=== PATIENT | female | born 1945 | race Caucasian/White ===

== ENCOUNTER 2016-11-21 09:47 | Emergency (ER) | payer OTHER ==
[~2016-11-21] VITALS: Ht 160 cm; Wt 59.9 kg
--- NOTE | ~2016-11-21 | EKG ---
[place] [id number] [email or web address] [employer] [address] ELECTROCARDIOGRAM REPORT Name: OMARWILL M Room #: [id number] Admission: 11/21/16 Attend Phys: Discharge: Date of : 43 Report #: [id number] THIS REPORT FOR: //name// [facility] ED Test Date: 2016-11-21 Test Time: 10:10:28 Pat Name: WILL NELSON Department: Room: Gender: F Senior Database Programmer: Anila HARMON : 1945 Requested By: Cornelia Allen Order Number: [id number] MD: Daniel Castelan Measurements Intervals [place] Rate: 68 P: 65 [place]: 158 QRS: 23 QRSD: 72 T: 42 QT: 388 QTc: 413 Interpretive Statements Sinus rhythm Probable left atrial enlargement No previous ECG available for comparison Electronically Signed On 11-21-2016 11:22:04 [employer] [place] [employer] [place] [employer] by Daniel Castelan [email or web address] <ELECTRONICALLY SIGNED> By: Daniel Castelan MD 11/21/16 1122 1010 1010 Daniel Castelan MD /MIRANDA
[~2016-11-21 09:47] MED LIST: AMITRIPTYLINE H10 M1 PO; ZEGERID 20 MG1 EACH PO
[2016-11-21 10:14] LABS: HEMOGLOBIN 13.7 gm/dL (12.0-15.0); MCH 31.8 pg (26.0-34.0); MCHC 34.2 % (28.0-37.0); MCV 92.9 fL (80.0-100.0); RBC 4.31 mil/uL (4.20-5.00); RDW 13.2 % (10.5-14.5); WBC 5.2 thou/uL (4.0-11.0)
[2016-11-21] MEDS ORDERED: ALENDRONATE SOD70 MG PO (10:15)
[2016-11-21 10:22] LABS: ANION GAP 10 mmol/L (7-16); BUN 20 mg/dL (7-18); CALCIUM 8.8 mg/dL (8.5-10.1); CHLORIDE 104 mmol/L (98-107); CO2 25 mmol/L (21-32); CREATININE 0.9 mg/dL (0.6-1.3); GLUCOSE 100 mg/dL (70-99); SODIUM 139 mmol/L (136-145)
[2016-11-21 10:32] LABS: ALBUMIN 3.9 g/dL (3.4-5.0); ALKALINE PHOSPHATASE 63 U/L (46-116); SGOT 15 U/L (15-37); SGPT 21 U/L (30-65); TOTAL BILIRUBIN 0.5 mg/dL (<0.1-1.0); TOTAL PROTEIN 7.1 g/dL (6.4-8.2); TROPONIN-I < 0.04 ng/mL (<0.04-0.07)
[2016-11-21] MEDS ORDERED: PREDNISONE 20 M20 MG PO (13:34)
[2016-11-21] MEDS ORDERED: NORCO 5-325 TA1 EACH PO (13:34)
[2016-11-21 13:44] VITALS: BP 137/73
== END 2016-11-21 13:45 | disposition home or self-care (01) ==
LOC: ER 09:47
PROVIDERS: Emergency Medicine
DX: R07.89 Other chest pain (principal); M54.6 Pain in thoracic spine; Z88.1 Allergy status to other antibiotic agents